=== PATIENT | female | born 1955 | race Caucasian/White ===

== ENCOUNTER 2018-12-13 06:53 | Inpatient (IN) ==
[2018-12-11 10:13] LABS: BASO# 0.04 X1000 (0.0-0.2); BASO% 0.7 % (0.0-0.8); EOS% 1.7 % (0.0-10.0); HEMATOCRIT 40.1 % (37.0-47.0); HEMOGLOBIN 13.6 g/dL (12.0-16.0); LYMPH# 2.65 X1000 (1.2-3.4); LYMPH% 44.2 % (20.5-51.1); MCH 31.1 PG (27-31); MCHC 33.9 g/dL (33-37); MCV 91.6 FL (81-99); MONO# 0.51 X1000 (0.11-0.59); MONO% 8.5 % (1.7-9.3); MPV 9.5 FL (7.4-10.4); NEUT# 2.69 X1000 (1.4-6.5); NEUT% 44.9 % (42.2-75.2); PLT 256 X1000 (130-400); RBC 4.38 XMIL (4.2-5.4); WBC 5.99 X1000 (4.8-10.8)
--- NOTE | 2018-12-11 11:04 | EKG Report ---
Test Performed on : 12/11/2018 09:22:59 AM Test Reason : PAT Blood Pressure : / mmHG Vent. Rate : 053 BPM Atrial Rate : 053 BPM P-R Int : 154 ms QRS Dur : 086 ms QT Int : 456 ms P-R-T Axes : 059 044 066 degrees QTc Int : 427 ms Sinus bradycardia. Otherwise normal ECG No previous ECGs available Confirmed by Nishant STORY, Yash Marte ([id number]) on 12/12/2018 10:18:38 AM
[2018-12-13] MEDS ORDERED: PEPCID ONE (07:24)
[2018-12-13] MEDS ORDERED: LR 1,000 ML ONE (07:24)
[2018-12-13] MEDS ORDERED: REGLAN ONE (07:24)
[2018-12-13] MEDS ORDERED: KEFZOL 1 GM/D5W 1 GM/50 ML IVPB ONE (07:24)
[2018-12-13] MEDS ORDERED: VALIUM ONE (07:24)
[2018-12-13] MEDS ORDERED: DIPRIVAN 1% ONE ×2 (07:40→09:17)
[2018-12-13] MEDS ORDERED: FENTANYL ONE ×2 (07:40→09:17)
[2018-12-13] MEDS ORDERED: VERSED ONE ×2 (07:40→09:17)
[2018-12-13] MEDS ORDERED: XYLOCAINE-MPF 2% ONE ×2 (07:43→09:17)
[2018-12-13] MEDS ORDERED: ROBINUL ONE (07:57)
[2018-12-13] MEDS ORDERED: METHYLENE BLUE 0.5% ONE (10:06)
[2018-12-13] MEDS ORDERED: TYLENOL PO PRN (13:33)
[2018-12-13] MEDS ORDERED: PHENERGAN IM PRN ×3 (13:45→15:00)
[2018-12-13] MEDS: DILAUDID ONE ×2 (14:00→23:31)
[2018-12-13] MEDS: TORADOL IV SCH ×3 (14:51→23:33)
[2018-12-13] MEDS ORDERED: MORPHINE IM PRN (15:00)
[2018-12-13] MEDS ORDERED: TORADOL IV SCH (15:00)
--- NOTE | 2018-12-13 16:09 | OPERATIVE NOTE ---
PROCEDURE DATE: 12/13/2018 PREOPERATIVE DIAGNOSES: 1. Right breast cancer, upper outer quadrant. 2. 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 PRINCIPAL PROCEDURES: 1. Injection of right breast periareolar blue dye for identification of right axillary sentinel lymph node. 2. Right total mastectomy. 3. Right axillary sentinel lymph node biopsy. 4. Left modified radical mastectomy. SURGEON: Valery Woodward MD. ANESTHESIA: General. ESTIMATED BLOOD LOSS: 50 mL. DRAINS: 1. One #10 flat Nishant-Dooley drain under the flaps of the right mastectomy incision. 2. Two #10 flat Nishant-Dooley drains left side, 1 under the mastectomy incision and 1 in the left axilla. INDICATIONS: Ms. Leanna Weiss is a 63-year-old white female who has been diagnosed with breast cancer not only in her right breast but also her left breast. Initially, she was diagnosed with right breast cancer using an open biopsy in [place]. MRI imaging also suggested a left breast cancer. Needle biopsy was performed which proved that she had left breast cancer upper outer quadrant, and there was also enlarged lymph nodes in the left axilla. I did a fine needle aspiration under ultrasound guidance in our outpatient offices of an enlarged lymph node left axilla, and it was positive for breast cancer. We discussed treatment options. We chose a right total mastectomy with right axillary sentinel lymph node biopsy. Because she has proven metastases to the left axillary nodes, we discussed a left modified radical mastectomy. She has already seen Dr. Osorio-our medical oncologist. FINDINGS: She had no evidence of involvement of her skin or the pectoralis major muscle in the upper outer quadrants of either breast. I identified one sentinel lymph node in the right axilla. It clearly had high counts of 38,000 at 10 seconds, and it was also stained blue. We sent it down for frozen section analysis per our pathologist, and it came back no cancer. We did not do a completion right axillary lymph node dissection. On palpation of the remainder of the right axillary contents, there were no abnormally palpable lymph nodes. On the left side, we knew she had positive axillary lymph nodes and therefore, we just proceeded with a left modified radical mastectomy. Again, there was no evidence of any involvement of the skin or the deep margin along the pectoralis major muscle of this upper outer left breast cancer. DESCRIPTION OF PROCEDURE: The patient presented to outpatient surgery. She underwent injection of her right breast by nuclear medicine for identification of the right axillary sentinel lymph node. She was brought to the operating room, where she received general anesthesia, was intubated, and her entire chest and both arms were prepped and draped in sterile field. She received Ancef prophylactically. We began by injecting 6 mL of blue dye in the periareolar area right breast. It was massaged. I marked my incision for her right total mastectomy with a skin marker, and then I made my elliptical incision encompassing the nipple-areolar complex. It was an oblique incision extending up to the right axilla. I made this incision with a 10 blade scalpel. Then, I created my flaps using the cautery and the LigaSure. The superior flap went to the clavicle, medial flap to the sternum, inferior flap to the inframammary fold. Then, I removed the breast off the right pectoralis major muscle from medial to lateral. Before removing the entire breast contents of the axillary tail, I identified our sentinel node using the gamma probe. I used the LigaSure to remove this lymph node from the axillary contents. It was stained blue and had 10 second counts out of the axilla of over 30,000. After removal of this lymph node, the counts in the right axilla almost went down to 0. No other sentinel lymph node was identified or removed from the right axilla. On palpation of the right axilla, there were no abnormal lymph nodes. I did not dissect out the rest of the right axillary contents. We left this wound open until we receive the frozen section report of the sentinel lymph node. I then directed my attention to the left side. We knew we were doing a left modified radical mastectomy because she already had biopsy proven left axillary sentinel lymph nodes. Again, I marked an elliptical incision. It was oriented obliquely towards the left axilla. We tried to match our incisions on either side. Our ellipse that we marked encompassed the nipple-areolar complex, and the biopsy sites. I made my incision again with a 10 blade scalpel. I used the cautery to create our flaps. Again, the superior flap to the left clavicle, inferior flap to the inframammary fold, medial flap to the sternum, and I removed the breast from medial to lateral mostly using cautery. I then dissected out the left axilla with the breast still attached to the axillary contents. I used the LigaSure a lot during this dissection. I identified the axillary triangle, the serratus medially, the axillary vein superiorly, and the latissimus dorsi laterally. I identified the long thoracic and thoracodorsal nerves. I dissected all the soft tissue between these nerves from superior to inferior, and created a clean dissection of the left axillary contents. I had to sacrifice the second intercostal nerve as part of our specimen. I tried to preserve the nerves to the pectoralis major and minor muscles. I irrigated both wounds thoroughly. I placed two 10 flat Nishant-Dooley drains on the left side because of the completion left axillary lymph node dissection. I placed one 10 flat Nishant-Dooley drain on the right side. They were brought out through separate stab incisions anterior axillary line. They were secured to the skin with 3-0 and 2-0 nylon stitches. I closed our wounds in layers. The first layer of 3- 0 popoff Vicryl stitches and closed subcutaneous tissue. The skin was closed with 4-0 Monocryl subcuticular stitch. Dressings were applied. She will go to the recovery room and then be hospitalized at least overnight. I spoke with her after the procedure. cc: MD Hai Bergeron MD
[2018-12-13] MEDS: MORPHINE IM PRN (18:59)
[2018-12-13] MEDS: PERIDEX MT SCH (20:45)
[2018-12-13] MEDS ORDERED: NARCAN ONE (22:31)
[2018-12-13] MEDS ORDERED: NS 500 ML IV ONE (22:47)
[2018-12-13] MEDS: NS 1,000 ML IV SCH ×2 (23:33→23:55)
[2018-12-14] MEDS: TORADOL IV SCH (06:39)
[2018-12-14] MEDS: ULTRAM PO PRN ×2 (08:04→21:37)
[2018-12-14] MEDS: PERIDEX MT SCH ×2 (11:40→21:37)
[2018-12-14] MEDS: NS 1,000 ML IV SCH (11:49)
[2018-12-14] MEDS: MORPHINE IM PRN ×3 (12:40→21:36)
--- NOTE | 2018-12-14 16:51 | PROGRESS NOTE ---
DATE: 12/14/2018 INDICATIONS: Ms. Leanna Weiss underwent bilateral mastectomies for bilateral breast cancer. She had a sentinel lymph node biopsy right axilla which was negative and she had a left modified radical mastectomy because of positive lymph nodes left axilla. She has a hematoma and some bruising involving her right mastectomy site and may have to be taken back for evacuation of her hematoma. She still has drains in place. Her wounds are intact and otherwise she is doing well. She did eat lunch. Dr. Isauro Johnson is on the weekend and I will speak to him about her right mastectomy wound. She will stay until at least tomorrow. cc: Valery Woodward MD
[2018-12-15] MEDS: MORPHINE IM PRN ×5 (01:36→21:24)
[2018-12-15] MEDS: NS 1,000 ML IV SCH ×2 (01:36→17:24)
[2018-12-15] MEDS ORDERED: XYLOCAINE-MPF 2% ONE (07:07)
[2018-12-15] MEDS ORDERED: DIPRIVAN 1% ONE (07:08)
[2018-12-15] MEDS ORDERED: FENTANYL ONE (07:08)
[2018-12-15] MEDS ORDERED: VERSED ONE (07:08)
[2018-12-15] MEDS ORDERED: KEFZOL 1 GM/D5W 1 GM/50 ML IVPB ONE (07:30)
[2018-12-15] MEDS: DILAUDID ONE ×3 (08:37→21:20)
[2018-12-15] MEDS: PERIDEX MT SCH ×2 (13:49→21:26)
[2018-12-15] MEDS: ULTRAM PO PRN (19:52)
--- NOTE | 2018-12-15 20:02 | OPERATIVE NOTE ---
PROCEDURE DATE: 12/15/2018 PREOPERATIVE DIAGNOSIS: Hematoma right mastectomy site. POSTOPERATIVE DIAGNOSIS: Hematoma right mastectomy site. PRINCIPAL PROCEDURE: Exploration of right mastectomy wound with evacuation of hematoma and reclosure of wound. SURGEON: Valery Woodward MD. ANESTHESIA: General. ESTIMATED BLOOD LOSS: 150 mL. DRAINS: A #10 flat Nishant-Dooley drain right axilla and chest. INDICATIONS: Ms. Leanna Weiss is a 63-year-old white female who underwent bilateral breast mastectomies 2 days ago. She has developed a significant hematoma under her right mastectomy site and we felt we should evacuate this hematoma to help with healing and decrease chances of infection or wound problems. FINDINGS: She had clotted blood under her flaps involving her right mastectomy wound. We evacuated all of the clot and irrigated the wound thoroughly. There was no evidence of any ongoing bleeding. We did replace her TORSTEN drain and reclose the wound. DESCRIPTION OF PROCEDURE: The patient was brought to the operating room, placed supine, received general anesthesia, and was ventilated using the LMA. We removed her right TORSTEN drain and then the right mastectomy wound was prepped and draped within a sterile field. She received Ancef prophylactically. I had closed the wound previously with 3-0 popoff Vicryl stitches in a 4-0 Monocryl. We just reopened the right mastectomy wound completely using a 15 blade scalpel. We evacuated the clot involving the wound with our hand. I then used an orthopedic soaking pit operator and 3 L of fluid to thoroughly irrigate our mastectomy flaps, the pectoralis major muscle and the area of the axilla. I replaced the TORSTEN drain. It was placed through a separate stab incision below our incision anterior axillary line. It was secured to the skin with a 2-0 nylon stitch. I reclosed the mastectomy wound in layers. First layer 3-0 popoff Vicryl stitches closed subcutaneous tissue. The skin was closed with 4-0 Monocryl subcuticular stitch. Dressings were applied. The bulb was hooked to bulb suction and she will go back to the recovery room and then return to her floor. The left mastectomy wound appeared to be satisfactory. cc: Valery Woodward MD
[2018-12-16] MEDS: MORPHINE IM PRN ×4 (01:28→14:55)
[2018-12-16] MEDS: NS 1,000 ML IV SCH (05:37)
[2018-12-16] MEDS: PERIDEX MT SCH ×2 (08:55→20:55)
[2018-12-16] MEDS: ULTRAM PO PRN ×2 (16:11→23:47)
[2018-12-16] MEDS ORDERED: NS 1,000 ML IV SCH (18:27)
[2018-12-16] MEDS ORDERED: NORCO-7.5 PO PRN (20:38)
--- NOTE | 2018-12-16 20:53 | GENERAL SURGERY PROGRESS NOTE ---
DATE: 12/16/2018 SUBJECTIVE: Little more sore, a little slower this morning following her hematoma evacuation yesterday. No fevers, no tachycardia. TORSTEN drainage remains serosanguineous, wound flat with appropriate amount of bruising. No new labs this morning. ASSESSMENT AND PLAN: 63-year-old female status post bilateral mastectomy. She had a hematoma evacuation yesterday by Dr. Woodward. Monitor through the day today and plan for maybe home tomorrow. cc: MD Valery Martinez MD
[2018-12-16] MEDS: PERCOCET-5 PO PRN (23:46)
[2018-12-17] MEDS: PERCOCET-5 PO PRN ×3 (06:22→14:34)
[2018-12-17] MEDS: ULTRAM PO PRN ×2 (06:23→11:52)
[2018-12-17] MEDS: PERIDEX MT SCH (08:19)
[2018-12-17 11:47] VITALS: BP 167/93
--- NOTE | 2018-12-17 16:14 | GENERAL SURGERY PROGRESS NOTE ---
DATE: 12/17/2018 SUBJECTIVE: Doing okay. Still has some pain. No fevers. No tachycardia. OBJECTIVE: On exam, her wounds are flat, TORSTNE drain serosanguineous. ASSESSMENT AND PLAN: A 63-year-old female patient of Dr. Woodward's bilateral mastectomies. She had a hematoma evacuation on the right. Overall, she is doing well. I will let her go home today with Percocet for pain. She will see one of us in the office later this week for wound check as well as possible drain removal. We discussed postop instructions with her. Her pathology is pending. She will call with any issues. cc: MD Valery Martinez MD
== END 2018-12-17 15:06 | disposition home or self-care (01) | DRG 580 ==
LOC: OPS 06:53 → 4N 06:53 → NM 06:53 → OBSVTOIN 12:40
PROVIDERS: ADMIT Surgery; ATTEND Surgery
CPT/HCPCS: 38792; 85025; 88304; 88307; 88309; 88331; 93005; 93010; 94761; 94799; A9270; A9520; J0690; J1170; J1885; J2250; J2270; J2310; J2550; J3010; J7030; J7040; J7120; Q9968